=== PATIENT | male | born 1945 | race Caucasian/White ===

== ENCOUNTER 2020-01-30 06:50 | Day surgery (SDC) | payer MEDICARE, BC ==
[~2020-01-30] VITALS: Ht 182.9 cm; Wt 80.7 kg
[~2020-01-30 06:50] MED LIST: CENTRUM MEN'S1 EACH PO; COZAAR25 MG PO; CRESTOR40 MG NG; PROSCAR5 MG PO
--- NOTE | 2020-01-30 08:48 | NUR ---
01/30/20 0848 Mariaelena Oseguera 0868 PATIENT ARRIVES TO PACU RESTING WITH EYES CLOSED, RESPONDS TO VERBAL STIMULI. HOB ELEVATED. PATIENT DENIES PAIN OR NAUSEA. RESP EVEN AND UNLABORED, NC AT 2 LITERS, OFF ON ARRIVAL TO PACU.
--- NOTE | 2020-01-31 07:46 | OR ---
[facility] [address], [place] [address] Signed DATE OF OPERATION: 01/30/2020 SURGEON: Seda Mahajan MD PREOPERATIVE DIAGNOSES: 1. Unremarkable colonoscopy 2002. 2. Colonoscopy with adenomatous polyp in 2015. 3. Diverticulosis. POSTOPERATIVE DIAGNOSES: 1. A 6 mm polyp at 6 cm. 2. Moderate to severe sigmoid diverticulosis. 3. Minimal internal hemorrhoids. PROCEDURE: Colonoscopy with hot biopsy. ESTIMATED BLOOD LOSS: None. INDICATIONS: Freddy is a 74-year-old gentleman, who presents for a followup colonoscopy. He had a negative colonoscopy back in 2002. While down in [place], he had 2 adenomatous polyps removed from his colon in 2014. He is also known to have fairly significant left-sided diverticulosis. In the meantime, he said he has no lower GI complaints. There is no family history of colon cancer or polyps. In the office, I gave Haily pamphlet on colonoscopy, we looked at that together along with the risks including, but not limited to gas bloating, crampy abdominal pain, bleeding, perforation requiring surgery, and missed diagnosis. He also understands the need for IV conscious sedation. He had expressed understanding and wished to proceed. DESCRIPTION OF PROCEDURE: Freddy was taken into our endoscopy suite and placed in the left lateral decubitus position. He required 9 mg of Versed and 175 mcg of fentanyl to cover the case. He was awake several times during the procedure and we had to add some additional sedation and abdominal compression. However, it is not particularly difficult to pass the scope. In addition, his prep was good. Just a couple areas of liquid stool mostly which was suctioned out. A digital rectal exam was performed and his prostate is indurated, but not particularly enlarged. It is a little more prominent on the left than the right. The adult colonoscope was introduced then and advanced around into the cecum as above. Electronically Signed By: SEDA MAHAJAN MD 01/31/20 0746 PATIENT NAME: FREDDY GUILLAUME OPERATIVE REPORT DATE OF : 43 REPORT #: [id number] PHYSICIAN: SEDA MAHAJAN MD PCP: SARY VERDIN MD REPORT IS CONFIDENTIAL AND NOT TO BE RELEASED WITHOUT AUTHORIZATION [facility] [address], [place] [address] Signed The scope was slowly withdrawn. We could easily see the ileocecal valve. He had a few diverticula in the right colon. He had moderate to severe diverticula in his left and sigmoid colon. They were moderate to large in size, moderate in number, and scattered about. The rectum was unremarkable except for a 6 mm polyp just above the anal canal. It looked like it was on the 1st hospital fold. It was easily removed with the help of hot biopsy forceps. Upon retroflexion of scope, he does have minimal internal hemorrhoid tissue. After this, the gas was suctioned out, colonoscope removed. Freddy tolerated the procedure quite well. RECOMMENDATIONS: I will see Billy back in my office in 7 to 14 days to review his results. Seda Mahajan MD ALB/MODL /[id number] cc: MD Sary Ayon MD Copies: SEDA MAHAJAN MD ~ Electronically Signed By: SEDA MAHAJAN MD 01/31/20 0746 PATIENT NAME: FREDDY GUILLAUME OPERATIVE REPORT DATE OF : 43 REPORT #: [id number] PHYSICIAN: SEDA MAHAJAN MD PCP: SARY VERDIN MD REPORT IS CONFIDENTIAL AND NOT TO BE RELEASED WITHOUT AUTHORIZATION
--- NOTE | 2020-01-31 14:41 | PATH ---
[facility] [address], [place] [address] Signed SPECIMEN(S): A RECTAL POLYP AT 6 CM SPECIMEN SOURCE: A. RECTAL POLYP AT 6 CM CLINICAL HISTORY: Colonoscopy. Adenomatous polyps and diverticulosis. Postop: Rectal polyp, diverticulosis, internal hemorrhoids. MICROSCOPIC DESCRIPTION: Histologic sections of all submitted blocks are examined by light microscopy. These findings, together with the gross examination, support the pathologic diagnosis. FINAL PATHOLOGIC DIAGNOSIS: Rectum, polyp at 6 cm, polypectomy: - Tubulovillous adenoma. - Negative for high-grade dysplasia or malignancy. NAL:cml:C2NR GROSS DESCRIPTION: The specimen, labeled "MS, #1," and designated on the requisition "rectal polyp at 6 cm," is received in formalin and consists of one inman soft tissue polypoid fragment that measures 0.3 cm in greatest dimension. The specimen is entirely submitted in cassette (A1). AT (under the direct supervision of a pathologist) The Gross Description was prepared using a voice recognition system. The report was reviewed for accuracy; however, sound-alike word errors, addition and/or deletions may occur. If there is any question about this report, please contact Client Services. PERFORMING LABORATORY: The technical component was performed by [facility], [address] [place] [id number] (Numerical Control Machine Machinist: Aimee Godinez MD; CLIA# [id number]). [facility] [address] [address] (CLIA# [id number]). Diagnostician: Ayde Padilla MD Pathologist Electronically Signed 01/31/2020 PATIENT NAME: MARIA ELENA GUILLAUME PATHOLOGY DATE OF : 43 REPORT #: [id number] PHYSICIAN: SHAILESH PATHOLOGY PCP: RAPHAEL VERDIN MD REPORT IS CONFIDENTIAL AND NOT TO BE RELEASED WITHOUT AUTHORIZATION [facility] [address] [place] [id number] Signed Copies: ~ PATIENT NAME: MARIA ELENA GUILLAUME PATHOLOGY DATE OF : 43 REPORT #: [id number] PHYSICIAN: SHAILESH PATHOLOGY PCP: RAPHAEL VERDNI MD REPORT IS CONFIDENTIAL AND NOT TO BE RELEASED WITHOUT AUTHORIZATION
== END 2020-01-30 09:20 | disposition home or self-care (01) ==
LOC: DS 06:50 → OPS 06:50 → DS 08:15 → OPS 08:15
PROVIDERS: Colon & Rectal Surgery
PROC: 0DBP8ZZ Excision of Rectum, Via Natural or Artificial Opening Endoscopic (ICD-10-PCS; principal; 2020-01-30 08:00)
DX: Z12.11 Encounter for screening for malignant neoplasm of colon (principal); D12.8 Benign neoplasm of rectum; K64.8 Other hemorrhoids; K57.30 Diverticulosis of large intestine without perforation or abscess without bleeding; I10 Essential (primary) hypertension; E78.5 Hyperlipidemia, unspecified; N40.0 Benign prostatic hyperplasia without lower urinary tract symptoms; Z86.010 Personal history of colon polyps; Z79.899 Other long term (current) drug therapy; Z88.8 Allergy status to other drugs, medicaments and biological substances
CPT/HCPCS: 99153; G0500; J2250; J3010; J7121

== ENCOUNTER 2022-07-28 12:03 | Emergency (ER) | payer MEDICARE, BC ==
[~2022-07-28] VITALS: Ht 182.9 cm; Wt 80.7 kg
[2022-07-28] MEDS ORDERED: CITALOPRAM HBR10 MG PO (12:17)
== END 2022-07-28 13:25 | disposition home or self-care (01) ==
LOC: ED 12:03
DX: G62.9 Polyneuropathy, unspecified (principal); I10 Essential (primary) hypertension; Z88.8 Allergy status to other drugs, medicaments and biological substances; Z79.899 Other long term (current) drug therapy
CPT/HCPCS: 99284